=== PATIENT | male | born 1970 | race Caucasian/White ===

== ENCOUNTER 2017-04-09 15:29 | Emergency (ER) | payer SELFPAY ==
[~2017-04-09] VITALS: Ht 167.6 cm; Wt 73.5 kg
[2017-04-09] MEDS ORDERED: ONDANSETRON PF 4 MG/2 ML VIAL. IV ONE (16:30)
--- NOTE | 2017-04-09 16:35 | RAD ---
Indication shortness of breath. PA and lateral views of the chest were obtained. No prior imaging of the chest is available. The heart and pulmonary vessels appear normal. The lungs are clear. There is no pleural fluid or pneumothorax. Bony structures appear grossly intact. IMPRESSION: No acute or focal process is seen in the chest
[2017-04-09 16:40] LABS: BASO # 0.1 x10^3/uL (0.0-0.2); BASO % 1 % (0-3); EOS % 0 % (0-3); HEMATOCRIT 43.9 % (39.0-53.0); HEMOGLOBIN 15.5 g/dL (13.0-17.5); LYMPH # 3.1 x10^3/uL (1.0-4.8); LYMPH % 28 % (24-48); MEAN CORPUSCULAR HEMOGLOBIN 31 pg (25-35); MEAN CORPUSCULAR HGB CONC 35 g/dL (31-37); MEAN CORPUSCULAR VOLUME 88 fL (79-100); MONO % 7 % (0-9); NEUT % 64 % (31-73); PLATELET COUNT 288 x10^3/uL (140-400); RED BLOOD COUNT 4.98 x10^6/uL (4.30-5.70); RED CELL DISTRIBUTION WIDTH 12.6 % (11.5-14.5); WHITE BLOOD COUNT 11.3 x10^3/uL (4.0-11.0)
[2017-04-09] MEDS ORDERED: IV NORMAL SALINE 1000ML BAG 1,000 ML IV SCH (16:45)
[2017-04-09 16:50] LABS: INR 1.1 (0.8-1.1); PROTHROMBIN TIME PATIENT 13.7 SEC (11.7-14.0)
[2017-04-09 17:03] LABS: ALBUMIN 4.5 g/dL (3.4-5.0); ALBUMIN/GLOBULIN RATIO 1.2 (1.0-1.7); CALCIUM 10.4 mg/dL (8.5-10.1); CREATININE 1.9 mg/dL (0.7-1.3); GFR 38.5; MAGNESIUM 1.8 mg/dL (1.8-2.4); TOTAL BILIRUBIN 1.8 mg/dL (0.2-1.0); TOTAL PROTEIN 8.2 g/dL (6.4-8.2)
[2017-04-09 17:04] LABS: POTASSIUM 2.6 mmol/L (3.5-5.1)
--- NOTE | 2017-04-09 17:06 | EKG ---
[facility] [address] [place] [address] Test Date: 2017-04-09 Test Time: 15:38:53 Pat Name: JACK ALMANZAR Department: Room: Gender: M Business Analyst Project Manager: : 1970 Requested By: LUPE ACOSTA Order Number: [id number] Reading MD: Measurements Intervals [place] Rate: 105 P: 35 MA: 112 QRS: 24 QRSD: 82 T: 38 QT: 356 QTc: 475 Interpretive Statements SINUS TACHYCARDIA RI6.01 Unconfirmed report No previous ECG available for comparison
[2017-04-09 17:10] LABS: CKMB MASS 5.5 ng/mL (0.0-3.6)
[2017-04-09] MEDS ORDERED: POTASSIUM CHLORIDE 20 MEQ/15 ML ORAL LIQUID. PO ONE (17:30)
[2017-04-09 17:45] LABS: BILIRUBIN,URINE SMALL (NEG); GLUCOSE,URINE NEGATIVE (NEG); NITRITE,URINE NEGATIVE (NEG); PROTEIN,URINE 30 mg/dL (NEG-TRACE)
[2017-04-09 17:51] LABS: BARBITURATES NEG (NEG); BENZODIAZEPINES NEG (NEG); CANNABINOIDS NEG (NEG); COCAINE NEG (NEG); METHADONE NEG (NEG); OPIATES NEG (NEG); PHENCYCLIDINE NEG (NEG)
[2017-04-09 17:58] LABS: BACTERIA,URINE FEW /HPF (0-FEW); RBC,URINE 0 /HPF (0-2); SQUAMOUS EPITHELIAL CELL,UR OCC /LPF; WBC,URINE OCC /HPF (0-4)
[2017-04-09] MEDS ORDERED: POTASSIUM CHLORIDE 20 MEQ/15 ML ORAL LIQUID. PEG ONE (18:00)
--- NOTE | 2017-04-09 19:07 | PHYS DOC ---
Past Medical History Past Medical History: Other Additional Past Medical Histor: BORDERLINE PERSONALITY DISORDER, ADHD Past Surgical History: No Surgical History Alcohol Use: Heavy Drug Use: Methamphetamine Adult General Chief Complaint Chief Complaint: SHORTNESS OF BREATH HPI HPI Patient is a 47 year old male with with history of meth use, bipolar, multiple personalities, who presents today stating he has been using meth for the last 5 days and has not had anything to eat for 5 days. He states he recently came out of senior care. Patient states he would like to go to a drug rehabilitation center otherwise he has to go back to senior care. Patient denies any chest pain but starts he has shortness of breath. Patient denies any fever coughing or congestion. Denies any nausea but states he has been vomiting intermittently since this morning though he is in the ED drinking with no difficulties. He is begging to be sent to rehabilitation center for drug use stating he does not want to go back to senior care. Patient denies any suicidal or homicidal ideations. Review of Systems Review of Systems Constitutional: Denies fever or chills [] Eyes: Denies change in visual acuity, redness, or eye pain [] HENT: Denies nasal congestion or sore throat [] Respiratory: shortness of breath [] Cardiovascular: No additional information not addressed in HPI [] GI: Denies abdominal pain, nausea, vomiting, bloody stools or diarrhea [] : Denies dysuria or hematuria [] Musculoskeletal: Denies back pain or joint pain [] Integument: Denies rash or skin lesions [] Neurologic: Denies headache, focal weakness or sensory changes [] Pysch: Drug abuse Current Medications Current Medications Current Medications Medications (Trade) Dose Ordered Sig/Mary Start Time Stop Time Status Last Admin Dose Admin Ondansetron HCl (Zofran) 4 mg 1X ONCE 04/09/17 16:30 04/09/17 16:31 DC 04/09/17 16:37 4 MG Potassium Chloride (KCl Oral Soln) 40 meq 1X ONCE 04/09/17 18:00 04/09/17 18:02 DC 04/09/17 18:00 40 MEQ Sodium Chloride 1,000 ml @ 100 mls/hr Q10H 04/09/17 16:45 04/10/17 01:01 DC 04/09/17 16:32 100 MLS/HR Allergies Allergies Allergies Coded Allergies Type Severity Reaction Last Updated Verified lamotrigine Allergy Intermediate 04/19/16 Yes Physical Exam Physical Exam Constitutional: Well developed, well nourished, no acute distress, non-toxic appearance. [] HENT: Normocephalic, atraumatic, bilateral external ears normal, oropharynx moist, no oral exudates, nose normal. [] Eyes: PERRLA, EOMI, conjunctiva normal, no discharge. [] Neck: Normal range of motion, no tenderness, supple, no stridor. [] Cardiovascular:Heart rate regular rhythm, no murmur [] Lungs & Thorax: Bilateral breath sounds clear to auscultation [] Abdomen: Bowel sounds normal, soft, no tenderness, no masses, no pulsatile masses. [] Skin: Warm, dry, no erythema, no rash. [] Back: No tenderness, no CVA tenderness. [] Extremities: No tenderness, no cyanosis, no clubbing, ROM intact, no edema. [] Neurologic: Alert and oriented X 3, normal motor function, normal sensory function, no focal deficits noted. [] Psychologic: patient appears very anxious. Current Patient Data Vital Signs Vital Signs Date Time Temp Pulse Resp B/P (MAP) Pulse Ox O2 Delivery O2 Flow Rate FiO2 04/09/17 20:36 80 18 102/57 (72) 97 Room Air 04/09/17 15:42 98.5 98.5 Lab Values Laboratory Tests Test 04/09/17 16:30 04/09/17 17:30 04/09/17 19:24 White Blood Count 11.3 x10^3/uL (4.0-11.0) H Red Blood Count 4.98 x10^6/uL (4.30-5.70) Hemoglobin 15.5 g/dL (13.0-17.5) Hematocrit 43.9 % (39.0-53.0) Mean Corpuscular Volume 88 fL (79-100) Mean Corpuscular Hemoglobin 31 pg (25-35) Mean Corpuscular Hemoglobin Concent 35 g/dL (31-37) Red Cell Distribution Width 12.6 % (11.5-14.5) Platelet Count 288 x10^3/uL (140-400) Neutrophils (%) (Auto) 64 % (31-73) Lymphocytes (%) (Auto) 28 % (24-48) Monocytes (%) (Auto) 7 % (0-9) Eosinophils (%) (Auto) 0 % (0-3) Basophils (%) (Auto) 1 % (0-3) Neutrophils # (Auto) 7.2 x10^3uL (1.8-7.7) Lymphocytes # (Auto) 3.1 x10^3/uL (1.0-4.8) Monocytes # (Auto) 0.8 x10^3/uL (0.0-1.1) Eosinophils # (Auto) 0.0 x10^3/uL (0.0-0.7) Basophils # (Auto) 0.1 x10^3/uL (0.0-0.2) Prothrombin Time 13.7 SEC (11.7-14.0) Prothrombin Time INR 1.1 (0.8-1.1) D-Dimer (Kaylynn) 0.45 ug/mlFEU (0.00-0.50) Sodium Level 138 mmol/L (136-145) Potassium Level 2.6 mmol/L (3.5-5.1) *L Chloride Level 99 mmol/L (98-107) Carbon Dioxide Level 19 mmol/L (21-32) L Anion Gap 20 (6-14) H 19 mmol/L (6-14) H Blood Urea Nitrogen 26 mg/dL (8-26) Creatinine 1.9 mg/dL (0.7-1.3) H Estimated GFR (Cockcroft-Gault) 38.5 BUN/Creatinine Ratio 14 (6-20) Glucose Level 147 mg/dL (70-99) H 135 mg/dL (70-99) H Calcium Level 10.4 mg/dL (8.5-10.1) H Magnesium Level 1.8 mg/dL (1.8-2.4) Total Bilirubin 1.8 mg/dL (0.2-1.0) H Aspartate Amino Transferase (AST) 31 U/L (15-37) Alanine Aminotransferase (ALT) 32 U/L (16-63) Alkaline Phosphatase 52 U/L (46-116) Creatine Kinase 428 U/L (39-308) H Creatine Kinase MB (Mass) 5.5 ng/mL (0.0-3.6) H Creatine Kinase MB Relative Index 1.3 % (0-4) Troponin I Quantitative < 0.017 ng/mL (0.000-0.055) AQ-Kor-V-Type Natriuretic Peptide 82 pg/mL (0-124) Total Protein 8.2 g/dL (6.4-8.2) Albumin 4.5 g/dL (3.4-5.0) Albumin/Globulin Ratio 1.2 (1.0-1.7) Lipase 223 U/L (73-393) Salicylates Level < 2.8 mg/dL (2.8-20.0) L Salicylate Last Dose Date Unknown Salicylate Last Dose Time Unknown Acetaminophen Level < 2 mcg/ml (10-30) L Acetaminophen Last Dose Date Unknown Acetaminophen Last Dose Time Unknown Ethyl Alcohol Level < 10 mg/dL (0-10) Urine Color Sylvia Urine Clarity Clear Urine pH 6.0 Urine Specific [place] >=1.030 Urine Protein 30 mg/dL (NEG-TRACE) Urine Glucose (UA) Negative mg/dL (NEG) Urine Ketones (Stick) Trace mg/dL (NEG) Urine Blood Negative (NEG) Urine Nitrite Negative (NEG) Urine Bilirubin Small (NEG) Urine Urobilinogen Dipstick 1.0 mg/dL (0.2 mg/dL) Urine Leukocyte Esterase Trace (NEG) Urine RBC 0 /HPF (0-2) Urine WBC Occ /HPF (0-4) Urine Squamous Epithelial Cells Occ /LPF Urine Bacteria Few /HPF (0-FEW) Urine Mucus Mod /LPF Urine Opiates Screen Neg (NEG) Urine Methadone Screen Neg (NEG) Urine Barbiturates Neg (NEG) Urine Phencyclidine Screen Neg (NEG) Urine Amphetamine/Methamphetamine Pos (NEG) Urine Benzodiazepines Screen Neg (NEG) Urine Cocaine Screen Neg (NEG) Urine Cannabinoids Screen Neg (NEG) Urine Ethyl Alcohol Neg (NEG) POC Hemoglobin 13.6 g/dL (14-18) L POC Hematocrit 40 % (37-52) POC Sodium 139 mmol/L (135-145) POC Potassium 3.5 mmol/L (3.5-5.0) POC Chloride 105 mmol/L (98-110) POC Total CO2 20 mmol/L (23-32) L POC Blood Urea Nitrogen 21 mg/dL (8-26) POC Creatinine 1.2 mg/dL (0.5-1.4) POC Ionized Calcium (Althea) 1.09 mmol/L (1.13-1.32) L Laboratory Tests 04/09/17 16:30 Laboratory Tests 04/09/17 16:30 04/09/17 19:24 EKG EKG 15:38EKG interpreted by DR. Cruz sinus tachycardia, HR 105 no STEMI Radiology/Procedures Radiology/Procedures [] Course & Med Decision Making Course & Med Decision Making Pertinent Labs and Imaging studies reviewed. (See chart for details) This is a 47-year-old male patient who presents to the ED with shortness of breath after using meth for 5 days. He states he just came from senior care and does not want to go back to senior care would like to go to drug rehabilitation center for Meth use, patient states he is on parole right now he is begging to go to rehab. Urine drug screen positive for meth. Potassium was 2.6, creatinine was 1.9, CBC with nothing really acute. Patient was given 40 mEq of potassium by mouth 2. Potassium came up from 2.6 to 3.5. He was given IV fluids. Creatinine went down from 1.9-1.2. He requested admitted in the ED which we provided. We called Susan from the PAT team who came to evaluate patient and decided patient should go back to the parole house. She stated it is almost impossible to get this patient in any drug rehabilitation center because his known for having outbursts and not cooperating with care. We organize a cab to take patient back to the parole house. When patient heard we called a cab to pick him up he stated informed the RN he wants to kill himself but does not have a plan on how he will do it. We called Susan again who stays 45 minutes away. She came and evaluated patient. Susan states this patient is known for being very manipulative especially when it's time for him to go back to senior care or parole house. Patient denies any suicidal or homicidal ideation while talking to Susan. Susan and patient agreed patient will be transferred to [facility] [place]. She states we had to wait until after 12:30am before we can get him a cab voucher because that is the time the rehabilitation center will be able to accommodate him. Patient was transported to the rehabilitation Center via cab. We did encourage him to increase dietary potassium intake. Prescription for potassium also provided as well as nausea medicine. Dragon Disclaimer Dragon Disclaimer This electronic medical record was generated, in whole or in part, using a voice recognition dictation system. Departure Departure Impression: Primary Impression: Drug abuse Additional Impression: Hypokalemia Disposition: 01 HOME, SELF-CARE Condition: STABLE Referrals: NO PCP (PCP) follow up with your doctor in 2 days for lab work Patient Instructions: Drug Abuse and Addiction-SportsMed, Hypokalemia-Brief Additional Instructions: You seen for methamphetamine abuse. We tried getting into a rehabilitation center but none of them would not accept to. You have been discharged to the [facility]. Your potassium was low in the emergency room. Have it rechecked in the next 2 days. Follow-up with your own doctor in 2 days. Increase her dietary potassium intake. Do not do drugs or alcohol. Scripts Ondansetron (ZOFRAN ODT) 4 Mg Tab.rapdis 1 TAB SL Q8HRS, #15 TAB Prov: LUPE ACOSTA APRN 04/09/17 Potassium Chloride (POTASSIUM CHLORIDE) 20 Meq Tablet.er 20 MEQ PO DAILY for 3 Days, #3 TAB.SR Prov: LUPE ACOSTA APRN 04/09/17 Problem Qualifiers LUPE ACOSTA APRN Apr 09, 2017 19:07
[2017-04-09 19:31] LABS: POTASSIUM ISTAT 3.5 mmol/L (3.5-5.0)
[2017-04-09 20:36] VITALS: BP 102/57
[2017-04-09] MEDS ORDERED: POTA20TA82 PO (21:06)
[2017-04-09] MEDS ORDERED: ONDA4TAB10 SL (21:06)
== END 2017-04-10 00:33 | disposition home or self-care (01) ==
LOC: ER 15:29
DX: F15.10 Other stimulant abuse, uncomplicated (principal); E87.6 Hypokalemia; F44.81 Dissociative identity disorder; F31.9 Bipolar disorder, unspecified; F10.10 Alcohol abuse, uncomplicated; Z88.8 Allergy status to other drugs, medicaments and biological substances
CPT/HCPCS: 36415; 71010; 80047; 80053; 80305; 80329; 81001; 82553; 83690; 83735; 83880; 84484; 85027; 85379; 85610; 93005; 96361; 96374; 99285; G0480; J2405; J7030; G0481